=== PATIENT | male | born 1955 | race Caucasian/White ===

== ENCOUNTER 2020-03-22 12:48 | Outpatient (CLI) | payer MEDICARE, OTHER, SELFPAY ==
--- NOTE | ~2020-03-22 | CT_ITS ---
EXAMINATION: CT abdomen pelvis wo con EXAM DATE: 03/22/2020 13:13 INDICATION: Abdominal pain. TECHNIQUE: Spiral CT of the abdomen and pelvis was performed without contrast. Axial, coronal and sag ittal images were reviewed. The dose-length product (DLP) for this examination was 888.06 mGy-cm. T he exposure was tailored according to patient size (auto mA exposure control), and iterative reconstr uction (ASIR) was used as additional dose reduction technique. Comparison is made to prior examinatio n from 03/02/2014. FINDINGS: Patient has had interval supraumbilical hernia repair. There is no nephrolithiasis or hydro nephrosis. The prostate is unremarkable. The bladder is collapsed at time of imaging limiting eval uation. The liver, spleen, adrenal glands and pancreas are unremarkable. Gallbladder is unremarkabl e. No biliary obstruction. There is no retroperitoneal or pelvic lymphadenopathy. There is mild s cattered arteriosclerotic disease. The appendix is normal. There is a 2 cm duodenal diverticulum. There is mild scattered colonic divert iculosis. There is no adjacent inflammatory change to suggest diverticulitis. The stomach and small bowel are unremarkable. There is expected amount of colonic stool. No free intraperitoneal gas. The heart is normal in size. There are no pericardial or pleural effusions. The lung bases are unre markable. There are no osteoblastic or osteolytic lesions identified. Posterior fusion L2-L5. Into b chip fusion L2-3, L4-5 and L5-S1. Right femoral head sclerotic focus likely bone island unchanged. IMPRESSION: 1. No acute intra-abdominal findings. 2. Mild diverticulosis. Reviewed, dictated and finalized at location A.
== END 2020-03-22 12:49 | disposition home or self-care (01) ==
PROVIDERS: PCP Internal Medicine; Visit Provider Internal Medicine
DX: R10.9 Unspecified abdominal pain (principal); K57.90 Diverticulosis of intestine, part unspecified, without perforation or abscess without bleeding
CPT/HCPCS: 74176

== ENCOUNTER 2021-01-03 09:13 | Outpatient (CLI) | payer MEDICARE, OTHER, SELFPAY ==
[2021-01-03 09:10] VITALS: PULSE 75; O2SAT 94
[2021-01-03 09:15] VITALS: PULSE 118; O2SAT 90
[2021-01-03 09:25] VITALS: PULSE 90; O2SAT 95
== END 2021-01-03 09:14 | disposition home or self-care (01) ==
PROVIDERS: PCP Internal Medicine; Visit Provider Internal Medicine Pulmonary Disease
DX: J44.9 Chronic obstructive pulmonary disease, unspecified (principal)
CPT/HCPCS: 94618

== ENCOUNTER 2021-10-29 00:31 | Day surgery (SDC) | payer MEDICARE, OTHER, SELFPAY ==
[2021-10-15 10:43] VITALS: BMI 36.0
--- NOTE | 2021-10-28 12:46 | PM.HPGS ---
History of Present Illness History of Present Illness Consent: Risks, benefits, and alternatives have been discussed and questions answered. Patient agrees to proceed with procedure. Chief complaint: hx of colon polyps Narrative: Donny Aponte is a 66 year old male Who is here for colon cancer screening. A little over 4 years ago he had removal of 2 adenomatous polyps at a hospital in [place]. He has a constant pain in the left flank. He had a surgical incision there for some time ago. 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 He has pains that shoot down to his testicles; he states that he is followed by 2 urologists. He does have carcinoma of the prostate Review of Systems Review of Systems: All systems reviewed & are unremarkable except as noted in HPI and below PMFSH Past Medical History Medical History Cervical radiculopathy Coronary artery disease Gout High cholesterol Hypertension Obese Osteoarthritis Periumbilical hernia Testicular hypofunction Umbilical hernia Ventral hernia Surgical History Surgical History S/P lumbar laminectomy Family History Family History Mother COLD (chronic obstructive lung disease) Father Hypertension Hx of CABG ASHD (arteriosclerotic heart disease) Lung cancer Social History Social History Years smoked: 40 Smoking status: Former smoker Tobacco type: pipe Alcohol intake: current Substance use: never Substance use type: does not use Living arrangements: alone Spiritual care concerns: No Meds Home Medications and Allergies Home Medications Medication Instructions Recorded Confirmed Type aspirin 81 mg tablet,delayed 81 mg PO DAILY 12/03/20 10/15/21 History release melatonin 10 mg tablet 10 mg PO QHS 09/06/21 10/15/21 History nitroglycerin 400 mcg/spray 1 spray TRANSLINGUAL Q5M PRN 09/06/21 10/15/21 History translingual aerosol prasugrel 10 mg tablet 10 mg PO DAILY 09/06/21 10/15/21 History rosuvastatin 40 mg tablet 40 mg PO DAILY 09/06/21 10/15/21 History valsartan 80 1 tablet PO DAILY 09/06/21 10/15/21 History mg-hydrochlorothiazide 12.5 mg tablet carvedilol 6.25 mg PO BID 10/15/21 10/15/21 History hydrocodone-acetaminophen 1 tablet PO Q4-6H PRN 10/15/21 10/15/21 History Allergies Allergy/AdvReac Type Severity Reaction Status Date / Time No Known Allergies Allergy Unverified 10/29/21 07:21 Exam Resp: Auscultation: clear to auscultation bilaterally Cardio: Rate: regular rate Rhythm: regular rhythm GI: GI Palp: Yes Soft to palpation and No Tenderness to palpation present (GI) Assessment and Plan Assessment and plan (1) Colon cancer screening: Code(s): Z12.11 - Encounter for screening for malignant neoplasm of colon Status: Acute Assessment and Plan: Colonoscopy with possible biopsy or polypectomy or cautery or injection of substances.
[2021-10-29 07:23] VITALS: BP 172/19; PULSE 90; RESP 18; TEMP 36.4; O2SAT 94
[2021-10-29] MEDS: LACTATED RINGERS 1,000 ML 150 ML IV CONT (07:35)
[2021-10-29 07:42] VITALS: BMI 35.0
--- NOTE | 2021-10-29 07:58 | P.PNAN_ITS ---
Anes - Initial Pre Proc Eval Procedure: Operation Date: 10/29/21 08:30 Proposed Procedures p Screening Colonoscopy - David Kaiser MD Date/Time: 10/29/21 07:58 Surgeon: David Kaiser MD Pre Op Diagnosis: hx of colon polyps Patient Data Age: 66 Gender: M Height: 1.73 m Weight: 104.5 kg Last Vital Signs Temp 97.6 F 10/29/21 07:23 Pulse 90 10/29/21 07:23 Resp 18 10/29/21 07:23 BP 172/19 H 10/29/21 07:23 Pulse Ox 94 10/29/21 07:23 Allergies Allergy/AdvReac Type Severity Reaction Status Date / Time No Known Allergies Allergy Unverified 10/29/21 07:21 Home Medications Medication Instructions Recorded Confirmed Type aspirin 81 mg tablet,delayed 81 mg PO DAILY 12/03/20 10/15/21 History release melatonin 10 mg tablet 10 mg PO QHS 09/06/21 10/15/21 History nitroglycerin 400 mcg/spray 1 spray TRANSLINGUAL Q5M PRN 09/06/21 10/15/21 History translingual aerosol prasugrel 10 mg tablet 10 mg PO DAILY 09/06/21 10/15/21 History rosuvastatin 40 mg tablet 40 mg PO DAILY 09/06/21 10/15/21 History valsartan 80 1 tablet PO DAILY 09/06/21 10/15/21 History mg-hydrochlorothiazide 12.5 mg tablet carvedilol 6.25 mg PO BID 10/15/21 10/15/21 History hydrocodone-acetaminophen 1 tablet PO Q4-6H PRN 10/15/21 10/15/21 History Patient hx anesthesia problems: none Family hx anesthesia problems: none Results Review: All pre-operative results and documents have been reviewed as part of the pre-operative evaluation. [facility] Past Medical History Medical History (Updated 10/28/21 @ 12:48 by David Kaiser MD) Cervical radiculopathy Coronary artery disease Gout High cholesterol Hypertension Obese Osteoarthritis Periumbilical hernia Testicular hypofunction Umbilical hernia Ventral hernia Surgical History Surgical History S/P lumbar laminectomy Family History Family History Mother COLD (chronic obstructive lung disease) Father Hypertension Hx of CABG ASHD (arteriosclerotic heart disease) Lung cancer Social History Social History Years smoked: 40 Smoking status: Former smoker Tobacco type: pipe Alcohol intake: current Substance use: never Substance use type: does not use Living arrangements: alone Spiritual care concerns: No Anes - Eval Final PreProcedure Day of Procedure 10/29/21 07:58 Patient weight: obese Heart: regular rate and rhythm Lungs: clear to auscultation Airway: Mallampati scale class III Neurological: alert and oriented Last oral intake: >/= 8 hours ASA classification: III Emergent: no Anesthetic plan: proceed Anesthesia type and monitoring: general GIVS and standard monitoring Results Review: All pre-operative results and documents have been reviewed as part of the pre-operative evaluation. Informed Consent: The patient's anesthetic plan and its attendant risks and benefits were discussed with the patient/family/POA. Questions were solicited and answers provided to the satisfaction of the patient/family/POA.
[2021-10-29] MEDS: SIMETHICONE ORAL SUSPENSION 20 MG/0.3 ML 30 ML BOTTLE 0.6 ML IRRIGATION (08:37)
[2021-10-29 08:47] VITALS: BP 89/50; PULSE 68; RESP 20; O2SAT 92
[2021-10-29 08:57] VITALS: BP 88/52; PULSE 68; RESP 20; O2SAT 92
[2021-10-29 09:07] VITALS: BP 109/62; PULSE 67; RESP 22; O2SAT 100
== END 2021-10-29 09:21 | disposition home or self-care (01) ==
PROVIDERS: PCP Internal Medicine; Visit Provider Internal Medicine Gastroenterology
PROC: 0DJD8ZZ Inspection of Lower Intestinal Tract, Via Natural or Artificial Opening Endoscopic (ICD-10-PCS; CPT 45378; principal; 2021-10-29 08:30)
DX: Z12.11 Encounter for screening for malignant neoplasm of colon (principal); Z86.010 Personal history of colon polyps; Z98.0 Intestinal bypass and anastomosis status; Z90.49 Acquired absence of other specified parts of digestive tract; C61 Malignant neoplasm of prostate; I25.10 Atherosclerotic heart disease of native coronary artery without angina pectoris; I10 Essential (primary) hypertension; E78.00 Pure hypercholesterolemia, unspecified; M10.9 Gout, unspecified; M19.90 Unspecified osteoarthritis, unspecified site; Z79.82 Long term (current) use of aspirin; Z79.02 Long term (current) use of antithrombotics/antiplatelets; Z87.891 Personal history of nicotine dependence; E66.9 Obesity, unspecified; Z68.35 Body mass index [BMI] 35.0-35.9, adult
CPT/HCPCS: G0105; J2704; J7120

== ENCOUNTER 2021-11-20 08:48 | Outpatient (CLI) | payer MEDICARE, OTHER, SELFPAY ==
--- NOTE | ~2021-11-20 | MR_ITS ---
EXAMINATION: MR pelvis wo/w con DATE: 11/20/2021 10:16 INDICATION: Prostate cancer TECHNIQUE: Magnetic resonance imaging (MRI) of the pelvis was performed without and with 20 mL Multih ance intravenous contrast. Fullfield sequences of the pelvis included axial and coronal T2-weighted S S FSE, axial, sagittal and coronal 2D FIESTA, axial 2D FIESTA FS, axial SSFSE-IR WILLIAM, axial dual-echo T1-weighted FSPGR, axial and coronal T1 weighted LAVA, 3D axial T2 Cube, axial diffusion-weighted SE with apparent diffusion coefficient (ADC) maps. Postcontrast sequences included a time course axial T1-weighted LAVA and sagittal and coronal T1-weighted LAVA. COMPARISON: CT dated 03/22/2020 FINDINGS: Mild prostatomegaly measuring 4.4 x 3.4 x 3.0 cm. Collection of T2 hyperintense nonenhancing hydrogel situated between the anterior wall of the rectum and the prostate which measures 3.9 cm craniocaudal ly, 1.0 cm AP and 4.1 cm left to right. The bladder and visualized portions of the lower poles of the kidneys are normal. Visualized bowels are unremarkable. No pathologically enlarged pelvic or inguina l lymphadenopathy. Magnetic field artifact associated with instrumentation for a combined anterior an d posterior lumbar spinal fusion. Bone graft harvest site at the right posterior iliac spine. Additio nal foci of magnetic field artifact associated with several surgical clips along the anterior abdomin al wall. A couple low signal intensity bone islands at the right femoral head neck. No other suspicio us bone lesions identified. IMPRESSION: 1. Prostatomegaly with small collection scheduled between the prostate and anterior wall of the rectu m. 2. No evident metastatic disease. Reviewed, dictated and finalized at location H. [employer] BLE[employer]ER IMPRESSION: 1. Prostatomegaly with small collection scheduled between the prostate and ante rior wall of the rectum. 2. No evident metastatic disease.
--- NOTE | ~2021-11-20 | NM_ITS ---
EXAMINATION: NM bone scan whole body DATE: 11/20/2021 13:08 INDICATION: Malignant neoplasm of the prostate TECHNIQUE: 24.5 mCi Tc-99m HDP was administered intravenously. Delayed whole-body scintigrams were o btained. COMPARISON: Pelvis MRI dated 11/20/2021, CT abdomen and pelvis. 03/22/2020 and chest radiograph dated 05/28/2019. 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 Likely deg enerative joint centered uptake at the bilateral acromioclavicular and sternoclavicular joints, the b ilateral mid feet and at the bilateral hands and wrists. Increased uptake associated with bone graft material associated with the lower lumbar posterior spinal fusion as well as along the bone graft moody vest site at the right posterior iliac spine. Small focus of increased uptake associated with develop ing fusion at the left side of L1-L2 disc space. Mild uptake associated with facet osteoarthritis bennett aterally at the cervicothoracic junction. Mild increased uptake in the region of the ethmoid sinuses more prominent focus on the right which may relate to sinus disease. No other suspicious foci of abno rmal bone uptake to suggest metastatic disease. 3 tiny foci of likely skin contamination projecting o alem the soft tissues anteriorly at the right thigh. IMPRESSION: 1. No findings suspicious for metastatic disease. 2. Scattered foci of likely degenerative joint centered uptake as well as mild uptake associated with a lumbar spinal fusion. Reviewed, dictated and finalized at [facility]. [employer]
[2021-11-20 09:31] LABS: Estimated Glomerular Filt Rate > 60
== END 2021-11-20 08:49 | disposition home or self-care (01) ==
LOC: ANHIMG 08:58
PROVIDERS: PCP Internal Medicine; Visit Provider Radiology Radiation Oncology
DX: C61 Malignant neoplasm of prostate (principal); N40.0 Benign prostatic hyperplasia without lower urinary tract symptoms; Z98.1 Arthrodesis status
CPT/HCPCS: 72197; 78306; A9561; A9577

== ENCOUNTER 2022-04-11 10:36 | Outpatient (CLI) | payer MEDICARE, OTHER, SELFPAY ==
--- NOTE | ~2022-04-11 | XR_ITS ---
EXAMINATION: XR abdomen/kub 1V DATE: 04/11/2022 11:22 INDICATION: Gross hematuria. TECHNIQUE: A supine view of the abdomen on 2 radiographs was obtained. COMPARISON: CT abdomen and pelvis 04/11/2022 FINDINGS: There are no dilated loops of bowel. There is no urolithiasis. There are changes of anterio r posterior fusion procedures in lumbar spine. There are surgical clips in anterior abdominal wall. T here are brachytherapy seeds in the prostate. There is a benign bone island in proximal right femur. IMPRESSION: 1. No urolithiasis. Reviewed, dictated and finalized at location A. IMPRESSION: 1. No urolithiasis.
--- NOTE | ~2022-04-11 | CT_ITS ---
EXAMINATION: CT abdomen pelvis wo/w con DATE: 04/11/2022 12:00 INDICATION: Gross hematuria. TECHNIQUE: Computed tomography (CT) of the abdomen and pelvis was performed without and with intraven ous contrast using a total of 130 mL Omnipaque 300 intravenous contrast with a double-bolus technique for simultaneous opacification of the renal parenchyma and renal collecting system. Automated exposu re control and iterative reconstruction technique were employed. The dose-length product was 1770.59 mGy-cm. COMPARISON: CT abdomen and pelvis 03/22/2020 FINDINGS: The visualized portions of the lung bases demonstrate mild atelectasis. No pleural effusion. The hear t size is normal. There are coronary artery calcifications. No pericardial effusion. There are cysts in the liver measuring up to 11 mm. The gallbladder is normal. Calcifications in the spleen are consi stent with old granulomatous disease. The pancreas and adrenal glands are normal. There is no urolith iasis. The kidneys are normal. The ureters are well opacified and are normal. The bladder is not well distended. There are brachytherapy seeds in the prostate. There is diverticulosis of the colon witho ut evidence of diverticulitis. There are no dilated loops of bowel. The appendix is normal. There are no pathologically enlarged lymph nodes. There is no free intraperitoneal fluid. There is a benign zeina ne island in right femoral head. There is a bone graft donor site in right ilium. Partially visualize d is deformity of the sternum. There are changes of anterior fusion procedures at L2-L3, L4-L5, and L 5-S1. There are changes of posterior fusion procedure from L2 to L5. There is moderate lumbar spondyl osis and thoracic spondylosis. IMPRESSION: 1. No etiology for hematuria. Reviewed, dictated and finalized at location A.
[2022-04-11 11:46] LABS: Estimated Glomerular Filt Rate > 60
== END 2022-04-11 10:37 | disposition home or self-care (01) ==
PROVIDERS: PCP Internal Medicine; Visit Provider Nurse Practitioner Family
DX: R31.0 Gross hematuria (principal); Z98.1 Arthrodesis status; M47.815 Spondylosis without myelopathy or radiculopathy, thoracolumbar region
CPT/HCPCS: 74018; 74178; Q9967

== ENCOUNTER 2023-08-12 08:24 | Outpatient (CLI) | payer MEDICARE, OTHER, SELFPAY ==
--- NOTE | ~2023-08-12 | XR_ITS ---
EXAMINATION: XR abdomen/kub 1V DATE: 08/12/2023 08:45 INDICATION: Gross hematuria. TECHNIQUE: A supine view of the abdomen on 2 radiographs was obtained. COMPARISON: Abdomen radiographs 04/11/2022, CT abdomen and pelvis 08/12/2023 FINDINGS: There are no dilated loops of bowel. There is a large volume of stool in the colon. There a re phleboliths in the pelvis. There are changes of anterior and posterior fusion procedures in the sp ine. Surgical clips are noted from ventral hernia repair. IMPRESSION: 1. No urolithiasis. Reviewed, dictated and finalized at location A. IMPRESSION: 1. No urolithiasis.
--- NOTE | ~2023-08-12 | CT_ITS ---
CT of the Abdomen and Pelvis: Indication: Hematuria Technique: 2.5 mm axial scans were obtained through the abdomen and pelvis prior to and following in travenous administration of 130 cc of Omnipaque 350. Dose reduction technique was used on this scan b y utilizing automated exposure control and iterative reconstruction technique. The dose-length produc t (DLP) was 2403.10 mGy-cm. COMPARISON: 04/11/2022 Findings: Scans through the lung bases demonstrate stable lingular scarring. Stable small left hepatic cyst noted. The spleen, pancreas, gallbladder, adrenals and kidneys are wit hin normal limits. There are atherosclerotic calcifications of the aorta. No lymphadenopathy. No bowel obstruction or bowel wall thickening. There is no evidence to suggest acute appendicitis. Images through the pelvis were performed. Urinary bladder is unremarkable. No pelvic mass identified. No ascites. Impression: No etiology for hematuria identified. No significant abnormality seen. Reviewed, dictated and finalized at [facility]. Impression: No etiology for hematuria identified. No significant abnormality seen.
[2023-08-12 08:51] LABS: Estimated Glomerular Filt Rate > 60
--- NOTE | 2023-10-07 12:26 | WPDHPUPDATE1 ---
History and Physical Update Update Date/Time: 10/07/23 12:26 Plan cystoscopy and left stent removal today History and Physical has been reviewed, including an updated exam of the patient. There are NO changes in the patient's condition. Risks, benefits, and alternatives have been discussed and questions answered. Patient agrees to proceed with procedure.
== END 2023-08-12 08:25 | disposition home or self-care (01) ==
PROVIDERS: PCP Internal Medicine; Visit Provider Urology
DX: R31.0 Gross hematuria (principal)
CPT/HCPCS: 74018; 74178; Q9967